=== PATIENT | male | born 1985 | race Caucasian/White ===

== ENCOUNTER 2016-12-19 11:51 | Emergency (ER) | payer MEDICAID ==
--- NOTE | 2016-12-19 13:12 | EDPHY ---
H & P Time Seen by Provider: 12/19/16 13:01 HPI/ROS: HPI: 31-year-old male presents to ED with chief concern left forearm abscess. Symptoms onset last night. Reports "a pimple" that has worsened over night and this morning. No fever, chills, myalgias, nausea, vomiting, weakness, numbness , tingling of the left arm, or red streaking. No history of MRSA infections. Patient is an IV drug user who used heroin this morning. He is transient. ROS:10 point review of systems is negative other than as stated in HPI Past Medical/Surgical History: IV drug user Social History: Transient Smoking Status: Current every day smoker Physical Exam: Vital signs stable, reviewed by me General: Awake, alert, calm, cooperative. No acute distress. Head: Normalocephalic. Atraumatic. EENT: PERRLA. EOMI. No pallor or injection. Anicteric. No nystagmus. Neck: Supple, nontender. No lymphadenopathy. Full range of motion. Respiratory: Breathing unlabored. Breath sounds equal bilaterally and clear to auscultation. No adventitious sounds. CV: Chest nontender, atraumatic. Heart rate regular. Neuro: Alert. Oriented x 3. Speech clear. Nonfocal cranial nerves throughout. Sensation intact all extremities. Strength 5+ all extremities. Skin: Skin warm, dry, track serrano left AC. 2 cm x 1 cm abscess left medial forearm, ventral surface, with surrounding erythema. No induration. Very mild fluctuance. Extremities: Full range of motion in all 4 extremities. Mental status: Disheveled, appropriate, cooperative Constitutional: Initial Vital Signs Temperature (C) 37.2 C 12/19/16 12:15 Heart Rate 102 H 12/19/16 12:15 Respiratory Rate 17 12/19/16 12:15 Blood Pressure 128/67 H 12/19/16 12:15 O2 Sat (%) 93 12/19/16 12:15 O2 Delivery Mode Room Air Allergies/Adverse Reactions: No Known Allergies Allergy (Unverified 12/19/16 12:15) Home Medications: Medication Instructions Recorded Cephalexin [Keflex (*)] 500 mg PO QID #27 cap 12/19/16 Sulfamethox/Tmp 800/160 mg 1 tab PO BID #14 tab 12/19/16 [Bactrim Ds] Medical Decision Making Procedures: Procedure: Abscess drainage. The patient's abscess was located on the left medial forearm, ventral surface. I obtained verbal consent from the patient to drain the abscess who was informed about the possibility of bleeding and pain. The abscess anesthetized using 2 cc of 0.5% Marcaine. Abscess was incised with [# 11 scalpel]. No purulent drainage expressed. Wound irrigated by forestry technician with 500 mils sterile saline wound care/sterile dressing applied. The patient tolerated the procedure. The procedure was performed by myself. ED Course/Re-evaluation: 31-year-old male presents to ED with chief concern abscess. He is an IV drug user. Last use this morning. I&D performed. No purulent discharge. Irrigation was performed. Wound care performed by forestry technician. Copious amount of antibiotic ointment applied. Patient started on both Bactrim and Keflex. Culture sent. Patient vagal during irrigation of wound. Vitals recheck were stable. Counseled regarding need for follow up with primary care within the next 1-2 days, as well as getting established with primary care. He has also been counseled regarding symptoms for which he should return promptly for recheck. Case management was consulted and provided his medications for him under the map program. Please see case management note for further information. Differential Diagnosis: Cellulitis, abscess, MRSA, sepsis - Data Points Microbiology Results: MICROBIOLOGY 12/19/16 13:30 Arm - Swab Gram Stain - Final Medications Given: Discontinued Medications Cephalexin HCl (Keflex) 500 mg PO EDNOW ONE PRN Reason: Protocol Stop: 12/19/16 13:35 Last Admin: 12/19/16 13:58 Dose: 500 mg Ibuprofen (Motrin) 600 mg PO EDNOW ONE Stop: 12/19/16 13:50 Last Admin: 12/19/16 13:59 Dose: 600 mg Trimethoprim/Sulfamethoxazole (Bactrim Ds) 1 ea PO EDNOW ONE PRN Reason: Protocol Stop: 12/19/16 13:35 Last Admin: 12/19/16 13:59 Dose: 1 ea Departure - Departure Disposition: Home, Routine, Self-Care Clinical Impression: Abscess of left arm Condition: Good Instructions: Abscess (ED) Additional Instructions: Plan: Use antibiotics as prescribed--take Keflex antibiotic 4 times daily for 1 week, and Bactrim antibiotic twice daily for 1 week Follow up with primary care by Friday for recheck-without fail-When you call to schedule appointment, please let the office know you are an "ER follow up" appointment" Get established with a primary care provider, call [facility] and get established If he developed worsening symptoms including swelling, discharge, or red streaking up your arm return promptly for recheck Do not use IV drugs Referrals: NONE *PRIMARY CARE P,. [Primary Care Provider] - As per Instructions Zane Linder MD [Medical Doctor] - As per Instructions [facility],. [Clinic] - As per Instructions Prescriptions: Cephalexin [Keflex (*)] 500 mg PO QID #27 cap Sulfamethox/Tmp 800/160 mg [Bactrim Ds] 1 tab PO BID #14 tab
[2016-12-19] MEDS ORDERED: SULFAMETHOX/TMP 800/160 MG 1 TAB PO ONE (13:34)
[2016-12-19] MEDS ORDERED: CEPHALEXIN 500 MG CAP PO ONE (13:34)
[2016-12-19] MEDS ORDERED: IBUPROFEN 200 MG TAB PO ONE (13:49)
[2016-12-19 14:28] VITALS: BP 125/76; PULSE 80; RESP 20; TEMP 98.6; O2SAT 95
== END 2016-12-19 14:24 | disposition home or self-care (01) ==
PROC: 0H9EXZZ Drainage of Left Lower Arm Skin, External Approach (ICD-10-PCS; principal; 2016-12-19)
DX: L02.414 Cutaneous abscess of left upper limb (principal); F17.200 Nicotine dependence, unspecified, uncomplicated